=== PATIENT | male | born 1990 | race Caucasian/White ===

== ENCOUNTER 2017-04-16 11:26 | Emergency (ER) | payer SELFPAY ==
--- NOTE | 2017-04-21 23:42 | ER ---
ADMIT: 04/16/2017 RM/LOC: ER [facility] MR#: [id number] [address] [id number] DONTRELL LEVINE [address] [place] [address] Emergency Room Report SEX: M AGE: 26 : 1990 DATE: 04/16/2017 Please refer to my T-sheet for complete H and P. Briefly, the patient is a 26-year-old. He is left-handed, he was working with a nail gun when he shot the nail between his index and long finger pinning them together. It happened just prior. Comes in for evaluation. PHYSICAL EXAM: His right hand revealed a nail that is right in the center of his middle phalanx of the index and long finger pinning them together. It looks to be more volarly. He is neurovascularly intact distally. EMERGENCY DEPARTMENT COURSE: I anesthetized the area with bupivacaine and then pulled it out without difficulty using pliers, patient tolerated well. X- ray revealed no obvious fracture. Gave him Keflex 500 p.o. and Lancaster 5s two p.o. He was ready for discharge. ASSESSMENT: Foreign bodies, right long and index finger as described, removed in the Emergency Department by myself. PLAN: Keflex 500 q.i.d. for 7 days. Return if worse. Lancaster 5, gave him script for 20. Want him to follow up with Dr. Penny to recheck. Jcarlos Cisneros MD/ [place] JOB #: [id number] CC: Jcarlos Cisneros MD, Attending Physician Ibeth Penny MD
== END 2017-04-16 12:25 | disposition home or self-care (01) ==
LOC: ER 11:26
PROC: 0HCFXZZ Extirpation of Matter from Right Hand Skin, External Approach (ICD-10-PCS; principal; 2017-04-16)
DX: S60.452A Superficial foreign body of right middle finger, initial encounter (principal); S60.450A Superficial foreign body of right index finger, initial encounter; F17.210 Nicotine dependence, cigarettes, uncomplicated; W29.4XXA Contact with nail gun, initial encounter